=== PATIENT | female | born 1965 | race Caucasian/White ===

== ENCOUNTER 2021-04-16 10:59 | Inpatient (IN) | payer OTHER ==
[2021-04-16 11:29] LABS: #Lymphocytes 0.6 thou/uL (1.20-3.40); #Monocytes 0.2 thou/uL (0.11-0.59); #Neutrophils 8.9 thou/uL (1.40-6.50); %Basophils 0.1 % (0.0-1.0); %Eosinophils 0.1 % (0.0-10.0); %Lymphocytes 6.1 % (21.0-51.0); %Monocytes 2.4 % (0.0-10.0); %Neutrophils 91.3 % (42.0-75.0); Hemoglobin 16.8 g/dL (12.0-16.0); Mean Corpuscular HGB CONC 33.2 g/dL (32.0-36.0); Mean Corpuscular Hemoglobin 32.5 pg (27.0-31.0); Mean Corpuscular Volume 98.1 fL (78.0-98.0); Platelet Count 165 thou/uL (130-400); RBC Distribution Width 16.6 % (11.5-14.5); Red Blood Cell (RBC) Count 5.16 mill/uL (4.20-5.40); White Blood Cell (WBC) Count 9.8 thou/uL (4.8-10.8)
[2021-04-16] MEDS ORDERED: Ketorolac Tromethamine 30 MG/ML VIAL ONE (11:42)
[2021-04-16] MEDS ORDERED: methylPREDNISolone Sod Succ/PF 125 MG/2 ML VIAL ONE (11:42)
[2021-04-16 11:57] LABS: ALT (SGPT) 44 U/L (8-55); AST (SGOT) 38 U/L (5-34); Albumin 2.8 g/dL (3.5-5.0); Alkaline Phosphatase 175 U/L (40-110); Anion Gap 16 mmol/L (10-20); BUN (Urea Nitrogen) 86 mg/dL (9.8-20.1); Bilirubin, Total 1.5 mg/dL (0.2-1.2); Calc. Creatinine Clearance 0 mL/min (70-130); Calcium 9.6 mg/dL (7.8-10.44); Carbon Dioxide 27 mmol/L (22-29); Chloride 101 mmol/L (98-107); Globulin 4.1 g/dL (2.4-3.5); Glucose 248 mg/dL (70-105); Potassium 3.9 mmol/L (3.5-5.1); Protein, Total 6.9 g/dL (6.0-8.3); Sodium 140 mmol/L (136-145)
[2021-04-16] MEDS ORDERED: Azithromycin 500 MG VIAL ONE (12:26)
[2021-04-16] MEDS ORDERED: cefTRIAXone\\ROCEPHIN 1 GM VIAL ONE (12:26)
[2021-04-16] MEDS ORDERED: Senokot S 8.6-50 MG TAB PO PRN (13:22)
[2021-04-16] MEDS ORDERED: Acetaminophen 325 MG TAB PO PRN (13:22)
[2021-04-16 14:40] LABS: Lactic Acid 2.5 mmol/L (0.5-2.2)
[2021-04-16 14:40] LABS: SARS-CoV-2 NAA Rapid Test Not Detected (NotDetected)
[2021-04-16 14:45] LABS: Troponin I 0.039 ng/mL (< 0.028)
[2021-04-16] MEDS: cefTRIAXone\\ROCEPHIN 1 GM in Sodium Chloride 0.9% 100 ML IVPB SCH (15:17)
[2021-04-16 16:43] VITALS: BMI 13.1
[2021-04-16] MEDS: Azithromycin 500 MG in Sodium Chloride 0.9% 250 ML 250 ML IVPB SCH (17:45)
[2021-04-16] MEDS: Nicotine 14 MG PATCH TD SCH (17:46)
[2021-04-16] MEDS: Sodium Chloride 0.9% 1,000 ML IV SCH (17:57)
[2021-04-16] MEDS: methylPREDNISolone Sod Succ 40 MG VIAL IVP SCH (17:57)
[2021-04-16] MEDS: Mometasone 200 MCG/Formoterol 5 MCG 120 PUFF INHALER INH SCH (19:41)
[2021-04-16] MEDS: Ondansetron PF 4 MG/2 ML Vial IVP PRN (21:59)
[2021-04-16] MEDS: Famotidine 20 MG TAB PO SCH (21:59)
[2021-04-16] MEDS: HYDROcodone/Acetaminophen 5/325 mg Tablet PO PRN (22:02)
[2021-04-16] MEDS: Guaifenesin DM 100-10/5 ML UDCUP PO PRN (22:51)
[2021-04-17] MEDS: methylPREDNISolone Sod Succ 40 MG VIAL IVP SCH ×4 (01:00→18:42)
[2021-04-17] MEDS: Ondansetron PF 4 MG/2 ML Vial IVP PRN ×2 (03:53→21:05)
[2021-04-17] MEDS: Guaifenesin DM 100-10/5 ML UDCUP PO PRN ×2 (03:53→08:47)
[2021-04-17] MEDS: HYDROcodone/Acetaminophen 5/325 mg Tablet PO PRN (03:53)
[2021-04-17 04:05] LABS: Anion Gap 16 mmol/L (10-20); BUN (Urea Nitrogen) 89 mg/dL (9.8-20.1); Calc. Creatinine Clearance 41 mL/min (70-130); Carbon Dioxide 24 mmol/L (22-29); Chloride 106 mmol/L (98-107); Glucose 194 mg/dL (70-105); Sodium 142 mmol/L (136-145)
[2021-04-17 04:40] LABS: #Lymphocytes 0.6 thou/uL (1.20-3.40); #Monocytes 0.2 thou/uL (0.11-0.59); #Neutrophils 6.9 thou/uL (1.40-6.50); %Basophils 0.2 % (0.0-1.0); %Eosinophils 0.1 % (0.0-10.0); %Lymphocytes 8.2 % (21.0-51.0); %Monocytes 2.8 % (0.0-10.0); %Neutrophils 88.7 % (42.0-75.0); Hemoglobin 15.7 g/dL (12.0-16.0); Mean Corpuscular HGB CONC 32.7 g/dL (32.0-36.0); Mean Corpuscular Hemoglobin 32.5 pg (27.0-31.0); Mean Corpuscular Volume 99.4 fL (78.0-98.0); Mean Platelet Volume 8.1 fL (7.4-10.4); Platelet Count 119 thou/uL (130-400); Platelet Morphology Comment Appears Decreased; RBC Distribution Width 16.7 % (11.5-14.5); Red Blood Cell (RBC) Count 4.83 mill/uL (4.20-5.40); White Blood Cell (WBC) Count 7.7 thou/uL (4.8-10.8)
[2021-04-17] MEDS: Mometasone 200 MCG/Formoterol 5 MCG 120 PUFF INHALER INH SCH ×2 (06:56→18:47)
[2021-04-17] MEDS: Famotidine 20 MG TAB PO SCH (08:40)
[2021-04-17] MEDS: Sodium Chloride 0.9% 1,000 ML IV SCH (08:42)
[2021-04-17] MEDS: HYDROcodone/Acetaminophen 5/325 mg Tablet PER TUBE PRN ×3 (08:47→22:00)
[2021-04-17] MEDS ORDERED: Aspirin 81 mg Enteric Coated Tablet PO SCH (09:00)
[2021-04-17] MEDS ORDERED: Enoxaparin Sodium 40 MG/0.4 ML SYRINGE SC SCH (09:00)
[2021-04-17] MEDS ORDERED: Artificial Tear Sol 15 ML BOT EA EYE PRN (09:52)
[2021-04-17] MEDS ORDERED: Hydrocerin (Eucerin) Cream 120 gm Jar TOP PRN (09:52)
[2021-04-17] MEDS ORDERED: Bisacodyl 5 MG TAB PO PRN (09:52)
[2021-04-17] MEDS ORDERED: Loratadine 10 MG TAB PER TUBE PRN (09:52)
[2021-04-17] MEDS ORDERED: Cepastat Lozenges 1 LOZ PO PRN (09:52)
[2021-04-17] MEDS ORDERED: Sodium Chloride 0.65% Nasal 44 ML BOT EA NARE PRN (09:52)
[2021-04-17] MEDS ORDERED: hydrALAZINE 20 MG/ML VIAL SLOW IVP PRN (09:52)
[2021-04-17] MEDS ORDERED: Calcium Carbonate 500 MG ChewTAB PO PRN (09:52)
[2021-04-17] MEDS ORDERED: Metoclopramide HCl 10 MG/2 ML VIAL IVP PRN (09:52)
[2021-04-17] MEDS ORDERED: Loperamide HCl 2 MG CAP PER TUBE PRN (09:52)
[2021-04-17] MEDS ORDERED: Senokot S 8.6-50 MG TAB PER TUBE PRN (09:55)
[2021-04-17] MEDS: Nystatin 500,000 UNITS/5 ML UDCUP SSW SCH ×3 (11:32→21:05)
[2021-04-17] MEDS: Nicotine 14 MG PATCH TD SCH (11:32)
[2021-04-17] MEDS: cefTRIAXone\\ROCEPHIN 1 GM in Sodium Chloride 0.9% 100 ML IVPB SCH (11:32)
[2021-04-17] MEDS: Azithromycin 500 MG in Sodium Chloride 0.9% 250 ML 250 ML IVPB SCH (14:56)
[2021-04-17] MEDS: Guaifenesin DM 100-10/5 ML UDCUP PER TUBE PRN ×2 (18:41→23:59)
[2021-04-18 04:21] LABS: ALT (SGPT) 39 U/L (8-55); AST (SGOT) 26 U/L (5-34); Albumin 2.2 g/dL (3.5-5.0); Alkaline Phosphatase 154 U/L (40-110); Anion Gap 10 mmol/L (10-20); BUN (Urea Nitrogen) 72 mg/dL (9.8-20.1); Bilirubin, Total 0.5 mg/dL (0.2-1.2); Calc. Creatinine Clearance 47 mL/min (70-130); Calcium 8.6 mg/dL (7.8-10.44); Carbon Dioxide 26 mmol/L (22-29); Chloride 107 mmol/L (98-107); Globulin 3.2 g/dL (2.4-3.5); Glucose 185 mg/dL (70-105); Hemoglobin 13.7 g/dL (12.0-16.0); Magnesium 2.1 mg/dL (1.6-2.6); Mean Corpuscular HGB CONC 33.7 g/dL (32.0-36.0); Mean Corpuscular Hemoglobin 32.9 pg (27.0-31.0); Mean Corpuscular Volume 97.6 fL (78.0-98.0); Mean Platelet Volume 7.7 fL (7.4-10.4); Platelet Count 112 thou/uL (130-400); Potassium 3.4 mmol/L (3.5-5.1); Protein, Total 5.4 g/dL (6.0-8.3); RBC Distribution Width 16.1 % (11.5-14.5); Red Blood Cell (RBC) Count 4.18 mill/uL (4.20-5.40); Sodium 140 mmol/L (136-145); White Blood Cell (WBC) Count 11.5 thou/uL (4.8-10.8)
[2021-04-18 04:35] LABS: Phosphorus 1.9 mg/dL (2.3-4.7)
[2021-04-18 04:50] LABS: Band 43 % (5-11); Lymphocytes 2 % (21-51); MDiff Complete? YES; Monocytes 1 % (0-10); Neutrophil 54 % (42-75); Platelet Morphology Comment Appears Decreased; Reflex for Review?? YES; Toxic Granulation SLIGHT
[2021-04-18] MEDS ORDERED: Electrolyte Replacement Protocol 1 EACH FS PRN (05:15)
[2021-04-18] MEDS ORDERED: Potassium Phosphate 15 MMOL in Sodium Chloride 0.9% 250 ML 250 ML IVPB SCH (06:00)
[2021-04-18] MEDS: HYDROcodone/Acetaminophen 5/325 mg Tablet PER TUBE PRN ×3 (06:08→22:45)
[2021-04-18] MEDS: Guaifenesin DM 100-10/5 ML UDCUP PER TUBE PRN ×3 (06:08→17:02)
[2021-04-18] MEDS: methylPREDNISolone Sod Succ 40 MG VIAL IVP SCH ×5 (06:08→22:47)
[2021-04-18] MEDS: Sodium Chloride 0.9% 1,000 ML IV SCH (06:09)
[2021-04-18] MEDS: Mometasone 200 MCG/Formoterol 5 MCG 120 PUFF INHALER INH SCH ×2 (07:36→19:04)
[2021-04-18] MEDS ORDERED: SMX/TMP 800-160mg/20 ML UDCUP PO SCH (09:00)
[2021-04-18] MEDS: Enoxaparin Sodium 30 MG/0.3 ML SYRINGE SC SCH (09:45)
[2021-04-18] MEDS: Multivitamin W/ Minerals 1 TAB PER TUBE SCH (09:45)
[2021-04-18] MEDS: Pantoprazole 40 MG GRANULES PACKET PER TUBE SCH (09:45)
[2021-04-18] MEDS: Saccharomyces boulardii 250 MG CAP PO SCH (09:46)
[2021-04-18] MEDS: Cyanocobalamin (Vitamin B-12) 1,000 MCG TAB PER TUBE SCH (09:46)
[2021-04-18] MEDS: Nystatin 500,000 UNITS/5 ML UDCUP SSW SCH ×4 (09:46→22:35)
[2021-04-18] MEDS: Acetaminophen 325 MG TAB PER TUBE PRN ×2 (10:04→17:27)
[2021-04-18] MEDS: SMX/TMP 800-160mg/20 ML UDCUP PER TUBE SCH (10:17)
[2021-04-18] MEDS: cefTRIAXone\\ROCEPHIN 1 GM in Sodium Chloride 0.9% 100 ML IVPB SCH (12:49)
[2021-04-18] MEDS: Nicotine 14 MG PATCH TD SCH (12:51)
[2021-04-18] MEDS: Azithromycin 500 MG in Sodium Chloride 0.9% 250 ML 250 ML IVPB SCH (16:50)
[2021-04-18] MEDS: Ondansetron PF 4 MG/2 ML Vial IVP PRN (17:03)
[2021-04-19] MEDS: Sodium Chloride 0.9% 1,000 ML IV SCH ×3 (04:45→22:21)
[2021-04-19] MEDS: methylPREDNISolone Sod Succ 40 MG VIAL IVP SCH ×4 (06:12→23:08)
[2021-04-19 07:42] LABS: ALT (SGPT) 41 U/L (8-55); AST (SGOT) 31 U/L (5-34); Albumin 2.1 g/dL (3.5-5.0); Alkaline Phosphatase 144 U/L (40-110); Anion Gap 11 mmol/L (10-20); BUN (Urea Nitrogen) 32 mg/dL (9.8-20.1); Bilirubin, Total 0.4 mg/dL (0.2-1.2); Calc. Creatinine Clearance 56 mL/min (70-130); Calcium 8.2 mg/dL (7.8-10.44); Carbon Dioxide 26 mmol/L (22-29); Chloride 105 mmol/L (98-107); Glucose 159 mg/dL (70-105); Phosphorus 1.4 mg/dL (2.3-4.7); Potassium 4.5 mmol/L (3.5-5.1); Protein, Total 5.1 g/dL (6.0-8.3); Sodium 137 mmol/L (136-145)
[2021-04-19] MEDS: Mometasone 200 MCG/Formoterol 5 MCG 120 PUFF INHALER INH SCH ×2 (08:04→18:35)
[2021-04-19] MEDS ORDERED: Magnesium 2 GM/50 ML 2 GM in Premix Bag 1 BAG IVPB SCH (09:00)
[2021-04-19] MEDS: Enoxaparin Sodium 30 MG/0.3 ML SYRINGE SC SCH (09:19)
[2021-04-19] MEDS: Saccharomyces boulardii 250 MG CAP PO SCH (09:21)
[2021-04-19] MEDS: Pantoprazole 40 MG GRANULES PACKET PER TUBE SCH (09:21)
[2021-04-19] MEDS: Cyanocobalamin (Vitamin B-12) 1,000 MCG TAB PER TUBE SCH (09:21)
[2021-04-19] MEDS: Nystatin 500,000 UNITS/5 ML UDCUP SSW SCH ×4 (09:21→21:18)
[2021-04-19] MEDS: Multivitamin W/ Minerals 1 TAB PER TUBE SCH (09:21)
[2021-04-19] MEDS: PHOS-NAK 1 PKT PACK PO SCH ×4 (09:22→21:20)
[2021-04-19] MEDS: HYDROcodone/Acetaminophen 5/325 mg Tablet PER TUBE PRN ×3 (09:24→23:07)
[2021-04-19] MEDS: Acetaminophen 325 MG TAB PER TUBE PRN ×2 (12:19→21:09)
[2021-04-19] MEDS: Azithromycin 500 MG in Sodium Chloride 0.9% 250 ML 250 ML IVPB SCH (12:57)
[2021-04-19] MEDS: cefTRIAXone\\ROCEPHIN 1 GM in Sodium Chloride 0.9% 100 ML IVPB SCH (12:57)
[2021-04-19] MEDS: Nicotine 14 MG PATCH TD SCH (12:58)
[2021-04-19] MEDS: Guaifenesin DM 100-10/5 ML UDCUP PER TUBE PRN ×2 (16:39→21:09)
[2021-04-19] MEDS: Ondansetron PF 4 MG/2 ML Vial IVP PRN (23:18)
[2021-04-20] MEDS: methylPREDNISolone Sod Succ 40 MG VIAL IVP SCH ×2 (05:40→11:59)
[2021-04-20] MEDS: HYDROcodone/Acetaminophen 5/325 mg Tablet PER TUBE PRN ×2 (05:40→12:00)
[2021-04-20] MEDS: Guaifenesin DM 100-10/5 ML UDCUP PER TUBE PRN ×2 (05:40→09:58)
[2021-04-20] MEDS: Mometasone 200 MCG/Formoterol 5 MCG 120 PUFF INHALER INH SCH (07:29)
[2021-04-20 08:46] VITALS: BP 103/75; TEMP 97.8
[2021-04-20] MEDS ORDERED: Heparin 5,000 UNITS/ML VIAL SC SCH (09:00)
[2021-04-20] MEDS ORDERED: Enoxaparin Sodium 40 MG/0.4 ML SYRINGE SC SCH (09:00)
[2021-04-20] MEDS ORDERED: Enoxaparin Sodium 30 MG/0.3 ML SYRINGE SC SCH (09:00)
[2021-04-20] MEDS: Saccharomyces boulardii 250 MG CAP PO SCH (09:35)
[2021-04-20] MEDS: Cyanocobalamin (Vitamin B-12) 1,000 MCG TAB PER TUBE SCH (09:35)
[2021-04-20] MEDS: Multivitamin W/ Minerals 1 TAB PER TUBE SCH (09:35)
[2021-04-20] MEDS: Pantoprazole 40 MG GRANULES PACKET PER TUBE SCH (09:35)
[2021-04-20] MEDS: Nystatin 500,000 UNITS/5 ML UDCUP SSW SCH ×2 (09:35→13:04)
[2021-04-20] MEDS: Sodium Chloride 0.9% 1,000 ML IV SCH (10:13)
[2021-04-20] MEDS: SMX/TMP 800-160mg/20 ML UDCUP PER TUBE SCH (10:13)
[2021-04-20] MEDS: Azithromycin 500 MG in Sodium Chloride 0.9% 250 ML 250 ML IVPB SCH (13:15)
[2021-04-20] MEDS: Ondansetron PF 4 MG/2 ML Vial IVP PRN (13:15)
[2021-04-20] MEDS: Nicotine 14 MG PATCH TD SCH (15:32)
[2021-04-20] MEDS: cefTRIAXone\\ROCEPHIN 1 GM in Sodium Chloride 0.9% 100 ML IVPB SCH (15:33)
== END 2021-04-20 15:47 | disposition home or self-care (01) | DRG 974 ==
LOC: ERS 10:59 → ERHOLD 12:36 → IMCU/EMU 16:23 → T4-B 04-18 13:41
PROVIDERS: ADMIT Internal Medicine Geriatric Medicine; ATTEND Internal Medicine
PROC: 5A09457 Assistance with Respiratory Ventilation, 24-96 Consecutive Hours, Continuous Positive Airway Pressure (ICD-10-PCS; principal; 2021-04-16)
DX: J18.9 Pneumonia, unspecified organism (principal); E43 Unspecified severe protein-calorie malnutrition; B20 Human immunodeficiency virus [HIV] disease; J96.01 Acute respiratory failure with hypoxia; J44.0 Chronic obstructive pulmonary disease with (acute) lower respiratory infection; J44.1 Chronic obstructive pulmonary disease with (acute) exacerbation; Z68.1 Body mass index [BMI] 19.9 or less, adult; R64 Cachexia; C15.9 Malignant neoplasm of esophagus, unspecified; G82.20 Paraplegia, unspecified; Z20.822 Contact with and (suspected) exposure to COVID-19; Z66 Do not resuscitate; G62.9 Polyneuropathy, unspecified; F17.210 Nicotine dependence, cigarettes, uncomplicated; B18.2 Chronic viral hepatitis C; F31.9 Bipolar disorder, unspecified; F43.10 Post-traumatic stress disorder, unspecified; E86.0 Dehydration; F14.10 Cocaine abuse, uncomplicated; G40.909 Epilepsy, unspecified, not intractable, without status epilepticus; R13.19 Other dysphagia; E87.6 Hypokalemia; E83.39 Other disorders of phosphorus metabolism; M48.061 Spinal stenosis, lumbar region without neurogenic claudication; Z79.899 Other long term (current) drug therapy; Z79.51 Long term (current) use of inhaled steroids; Z93.1 Gastrostomy status
CPT/HCPCS: 36415; 71045; 80048; 80053; 83605; 83735; 83880; 84100; 84484; 85025; 85060; 87040; 93005; 94640; 94660; 94664; 94760; 96365; 96366; 96375; J0456; J0696; J1644; J1650; J1885; J2405; J2920; J2930; J3475; J3490; J7050; J7620; U0002